=== PATIENT | male | born 1975 | race Caucasian/White ===

== ENCOUNTER 2017-02-28 13:20 | Emergency (ER) | payer OTHER ==
[2017-02-28] MEDS ORDERED: 0.9 % SODIUM CHLORIDE 1,000 ML IV ONE ×2 (13:26→13:33)
[2017-02-28 13:42] LABS: BASOPHILS % 0.2 (0.0-1.5); EOSINOPHILS % 1.5 % (0.0-6.8); MEAN CORPUSCULAR HEMOGLOBIN 31.5 pg (28.0-34.0); MEAN CORPUSCULAR VOLUME 92.3 fl (80.0-100.0); MONOCYTES % 4.6 % (0.0-11.0)
[2017-02-28] MEDS ORDERED: FLUMAZENIL 0.1 MG/ML 5ML VIAL IV ONE (13:43)
[2017-02-28] MEDS ORDERED: NALOXONE HCL 2 MG/2 ML IVP ONE (13:50)
[2017-02-28 13:56] LABS: eGFR (African) > 60; eGFR (Non-African) > 60
[2017-02-28 14:02] LABS: AMPHETAMINE NEGATIVE ng/mL (<1000); BARBITURATES NEGATIVE ng/mL (<300); CANNABINOIDS NEGATIVE ng/mL (<50); COCAINE NEGATIVE ng/mL (<150); METHAMPHETAMINE NEGATIVE ng/mL (<1000); METHYLENEDIOXYMETHAMPHETAMINE NEGATIVE ng/mL (<500)
[2017-02-28 14:29] LABS: APPEARANCE,URINE Slightly Cloudy (CLEAR); COLOR,URINE Yellow (YELLOW); OCCULT BLOOD,URINE Negative (NEGATIVE); PH URINE 7.5 (5.0 - 8.0); UROBILINOGEN URINE 0.2 Eu (0.2-1.0)
[2017-02-28] MEDS ORDERED: ATROPINE SULFATE 0.1 MG/ML DISP.SYRIN ONE (14:51)
[2017-02-28 14:52] LABS: AMORPHOUS SEDIMENT,UR FEW (NEGATIVE)
[2017-02-28] MEDS ORDERED: ATROPINE SULFATE 0.1 MG/ML DISP.SYRIN IVP ONE (14:54)
--- NOTE | 2017-02-28 16:53 | ED Physician Documentation ---
Headache - HISTORIAN Historian: patient - HPI Stated Complaint: Unresponsive Chief Complaint: Headache Additional Information: sever x 1 month, unrelenting, unresponsive to otc meds Onset: days ago (30) Timing: abrupt, still present, persistent New Gradual Onset: No Exposure To: none. denies: recent head injury Severity: moderate Quality: pain Associated Symptoms: nausea. 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 denies: confusion EYES/ENT: denies: sore throat, difficulty swallowing, sinus pain, drainage CVS/RESP: none GI/: denies: abdominal pain, diarrhea, problems urinating, incontinence MS/SKIN/LYMPH: denies: muscle aches, back pain, rash, skin lesions all systems neg except as marked: Yes - PAST HX Medical History: other (headache as above) Surgical History: no surgical history Immunizations: referred to PCP Allergies/Adverse Reactions: Allergies Allergy/AdvReac Type Severity Reaction Status Date / Time Sulfa (Sulfonamide Allergy Verified 02/28/17 13:40 Antibiotics) sulfamethoxazole Allergy Verified 02/28/17 13:40 [From Bactrim] trimethoprim [From Bactrim] Allergy Verified 02/28/17 13:40 Home Medications: Ambulatory Orders Medication Instructions Recorded Acetaminophen [Tylenol] 325 mg PO Q4 PRN 02/28/17 Ibuprofen [Advil] 200 mg PO 02/28/17 - SOCIAL HX Smoking History: cigarettes Alcohol Use: none Drug Use: none - Family HX Family History: other (dm) - VITAL SIGNS Vital Signs: Vital Signs Temp Pulse Resp BP Pulse Ox 98 F 63 16 121/60 98 02/28/17 13:20 02/28/17 16:30 02/28/17 13:20 02/28/17 13:20 02/28/17 16:30 - REVIEWED ASSESSMENTS Nursing Assessment Reviewed: No Vitals Reviewed: No Progress - Results/Orders Results/Orders: cbc, cmp, trop, ua, uds unremarkable - Progress Progress: Pt. given 1 liter NS, 1 mg atropine ivp. Low pulse 39, high 66. Critical Care Note - Critical Care Note Total Time (mins): 0 ED Results Lab/Radiology - Lab Results Lab Results: Lab Results 02/28/17 02/28/17 02/28/17 13:50 13:50 13:35 WBC RBC Hgb Hct MCV MCH MCHC RDW Plt Count Neut % (Auto) Lymph % (Auto) [place] % (Auto) Eos % (Auto) Baso % (Auto) Neut # Lymph # [place] # Eos # Baso # Reactive Lymphs % Reactive Lymphs # Sodium Potassium Chloride Carbon Dioxide BUN Creatinine Estimated Creat Clear Est GFR ( Amer) Est GFR (Non-Af Amer) Glucose Calcium Total Bilirubin AST ALT Alkaline Phosphatase Troponin I < 0.03 ng/mL L ng/mL (0.03-0.06) Total Protein Albumin Urine Color Yellow (YELLOW) Urine Appearance Slightly cloudy (CLEAR) Urine pH 7.5 (5.0 - 8.0) Ur Specific [place] 1.020 (1.010-1.030) Urine Protein 1+ mg/dL H mg/dL (NEGATIVE) Urine Ketones Trace mg/dL mg/dL (NEGATIVE) Urine Occult Blood Negative (NEGATIVE) Urine Nitrite Negative (NEGATIVE) Urine Bilirubin Negative (NEGATIVE) Urine Urobilinogen 0.2 Eu Eu (0.2-1.0) Ur Leukocyte Esterase Negative (NEGATIVE) Urine RBC 0-2 (0-2 HPF) Urine WBC 0-2 (0-5 HPF) Ur Squamous Epith Cells Few (NEG-FEW) Amorphous Sediment Few H (NEGATIVE) Urine Glucose Negative mg/dL mg/dL (NEGATIVE) Opiates Screen Negative (2000 ng/mL) Oxycodone Screen Negative ng/mL ng/mL (<100) Methadone Screen Negative ng/mL ng/mL (<300) POC Urine Barbiturates Negative ng/mL ng/mL (<300) Amphetamines Screen Negative ng/mL ng/mL (<1000) POC Ur Methamphetamine Negative ng/mL ng/mL (<1000) MDMA Negative ng/mL ng/mL (<500) Benzodiazepines Screen Negative ng/mL ng/mL (<300) Cocaine Screen Negative ng/mL ng/mL (<150) Marijuana (THC) Screen Negative ng/mL ng/mL (<50) Ethyl Alcohol 02/28/17 02/28/17 13:35 13:35 WBC 9.30 K/ul K/ul (4.00-12.00) RBC 4.73 M/ul M/ul (3.90-5.20) Hgb 14.9 g/dL g/dL (12.0-18.0) Hct 43.7 % % (37.0-53.0) MCV 92.3 fl fl (80.0-100.0) MCH 31.5 pg pg (28.0-34.0) MCHC 34.2 g/dL g/dL (30.0-36.0) RDW 13.2 % % (11.3-14.3) Plt Count 183 K/mm3 K/mm3 (130-400) Neut % (Auto) 75.5 % % (39.0-79.0) Lymph % (Auto) 16.7 % % (16.0-50.0) [place] % (Auto) 4.6 % % (0.0-11.0) Eos % (Auto) 1.5 % % (0.0-6.8) Baso % (Auto) 0.2 (0.0-1.5) Neut # 7.0 # k/uL # k/uL (1.4-7.7) Lymph # 1.6 # k/uL # k/uL (0.6-4.0) [place] # 0.4 # k/uL # k/uL (0.0-0.9) Eos # 0.1 # k/uL # k/uL (0.0-0.6) Baso # 0.0 # k/uL # k/uL (0.0-0.5) Reactive Lymphs % 1.4 % % (0.0-5.0) Reactive Lymphs # 0.1 # k/uL # k/uL (0.0-0.8) Sodium 142 mmol/L mmol/L (136-145) Potassium 3.7 mmol/L mmol/L (3.5-5.0) Chloride 104 mmol/L mmol/L (98-110) Carbon Dioxide 30 mmol/L mmol/L (20-32) BUN 16 mg/dL mg/dL (10-26) Creatinine 0.8 mg/dL mg/dL (0.4-1.5) Estimated Creat Clear 168 Est GFR ( Amer) > 60 (60 - ) Est GFR (Non-Af Amer) > 60 (60 - ) Glucose 107 mg/dL H mg/dL (70-99) Calcium 10.0 mg/dL mg/dL (8.5-10.5) Total Bilirubin 0.8 mg/dL mg/dL (0.2-1.2) AST 22 U/L U/L (0-41) ALT 20 U/L U/L (0-45) Alkaline Phosphatase 60 U/L U/L (46-116) Troponin I Total Protein 7.4 g/dL g/dL (6.0-8.5) Albumin 4.7 g/dL g/dL (3.0-5.5) Urine Color Urine Appearance Urine pH Ur Specific [place] Urine Protein Urine Ketones Urine Occult Blood Urine Nitrite Urine Bilirubin Urine Urobilinogen Ur Leukocyte Esterase Urine RBC Urine WBC Ur Squamous Epith Cells Amorphous Sediment Urine Glucose Opiates Screen Oxycodone Screen Methadone Screen POC Urine Barbiturates Amphetamines Screen POC Ur Methamphetamine MDMA Benzodiazepines Screen Cocaine Screen Marijuana (THC) Screen Ethyl Alcohol < 10.0 MG/DL MG/DL (<10.0) - Radiology Radiology Impressions: CT head shows 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 - Orders Orders: ED Orders Category Date Time Status Continuous EKG monitoring Q30M Care 02/28/17 13:33 Active Continuous Pulse Oximetry Q30M Care 02/28/17 13:[address] Saline Lock/IV Now Care 02/28/17 13:33 Completed CHEST 1 VIEW [RAD] Routine Exams 02/28/[address] ABD & PELVIS W/O CON Stat Exams 02/28/[address] BRAIN W/O CONTRAST Stat Exams 02/28/17 Ordered CBC/PLATELET/DIFF Routine Lab 02/28/17 13:35 Completed CMP Routine Lab 02/28/17 13:35 Completed DRUG SCREEN URINE MEDICAL ONLY Routine Lab 02/28/17 13:50 Completed ETHANOL MEDICAL USE ONLY Routine Lab 02/28/17 13:35 Completed TROPONIN I (cTnI) Routine Lab 02/28/17 13:35 Completed URINALYSIS Routine Lab 02/28/17 13:50 Completed 0.9 % Sodium Chloride [Normal Saline] 1,000 ml Med 02/28/17 13:26 Discontinued IV .STK-MED 0.9 % Sodium Chloride [Normal Saline] 1,000 ml Med 02/28/17 13:33 Discontinued IV Q1H Atropine Sulfate [Atropen] Med 02/28/17 14:51 Discontinued 1 mg .ROUTE .STK-MED ONE Atropine Sulfate [Atropen] Med 02/28/17 14:54 Discontinued 1 mg IVP NOW ONE Flumazenil [Romazicon] Med 02/28/17 13:43 Discontinued 1 mg IV NOW ONE Naloxone HCl [Narcan] Med 02/28/17 13:50 Discontinued 2 mg IVP NOW ONE Oxygen Daily Oxygen 02/28/17 13:45 Ordered EKG WITH COMPARISON Stat Ther 02/28/17 13:33 Ordered Headache Physical Exam - EXAM General Appearance: alert, moderate distress (secondary to headache) EENT: no facial swelling, eyes nml inspection, PERRL, nml ENT. No: pain over sinuses, photophobia, retinal hemorrhages Neck: normal inspection, thyroid normal, supple Respiratory: no resp distress, chest non-tender, breath sounds normal CVS: reg. rate & rhythm, heart sounds nml Abdomen: non-tender, no organomegaly, nml bowel sounds, no distention Skin: color nml, no rash Extremitites: non-tender, normal range of motion - NEURO/PSYCH Higher Functions: alert, nml speech, slow to respond Cranial: nml as tested, no evidence of acute CVA. denies: facial droop Cerebellar: nml as tested (able to stand without weaving) Sensorimotor: motor nml, sensation nml. denies: aphasia Discharge Clincal Impression: Obstructive hydrocephalus, Bradycardia Home Medications: Ambulatory Orders Acetaminophen [Tylenol] 325 mg PO Q4 PRN 02/28/17 Ibuprofen [Advil] 200 mg PO 02/28/17 Comments: Case discussed with Dr. Kimball of Neurology at [facility] secondary to correction contract but they do not have a Neurosurgeon. As such [facility] contacted and case discussed with Dr. Delgado of Neurology who accepts transfer. Pt. transferred via ground EMS to ER at [facility] for eval. by Neurology, Neurosurgery and Cardiology. Condition: Critical Disposition: 02 XFER SHT-TRM HOSP Decision to Admit: NO Decision Time: 16:40
[2017-02-28] MEDS ORDERED: ONDANSETRON HCL/PF 4 MG/ 2ML VIAL ONE (16:59)
[2017-02-28] MEDS ORDERED: ONDANSETRON HCL/PF 4 MG/ 2ML VIAL IVP ONE (17:04)
[2017-02-28 17:13] VITALS: BP 122/72
--- NOTE | 2017-02-28 20:14 | Diagnostic Imaging Report ---
ECTOR WARE [facility] [address] [facility].[address] [address] Report Submission Date: Feb 28, 2017 3:41:50 PM CDT Patient Study Name: NAIN ALICIA Date: Feb 28, 2017 2:16:17 PM CDT Modality Type: CT\SR Gender: M Description: CT BRAIN W/O CONTRAST : 71 Institution: [facility] Physician: ECTOR WARE Computed tomography of the head without contrast History: Headaches and decrease consciousness Findings: Transverse brain sections are obtained without contrast revealing moderate bilateral lateral ventriculomegaly and a hyperdense lesion in the roof of the 3rd ventricle measuring 8 x 9 mm. Diffuse cerebral sulcal effacement is present without intracranial hemorrhage. The 3rd and 4th ventricles are normal in size. 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 Electronically signed on Feb 28, 2017 3:41:50 PM CDT by: Maximiliano LERNER
--- NOTE | 2017-02-28 20:14 | Diagnostic Imaging Report ---
ECTOR WARE [facility] [address] [facility] [address] [place], [place]. [address] Report Submission Date: Feb 28, 2017 3:45:26 PM CDT Patient Study Name: NAIN ALICIA Date: Feb 28, 2017 2:19:46 PM CDT Modality Type: CT\SR Gender: M Description: CT ABD & PELVIS W/O CO : 71 Institution: [facility] Physician: ECTOR WARE Computed tomography of the abdomen and pelvis without contrast History: Abdominal pain Findings: Transverse abdomen and pelvis sections are obtained without contrast revealing minimal left basilar atelectasis probably multiple small hepatic cysts , normal caliber gallbladder, and normal appendix. Bowel loops exhibit normal caliber and wall thickness. The pancreas, spleen, adrenals, kidneys, great vessels, and mesenteric structures are unremarkable. Motion artifact distorts some images. Pelvic sections reveal moderate rectosigmoid stool. Urinary bladder, prostate, and seminal vesicles are unremarkable. Mild L5/S1 spondylosis is present. No acute inflammatory or obstructive process is observed in the abdomen or pelvis. Impression: 1. No acute inflammatory or obstructive process. 2. Minimal left base atelectasis, probably small hepatic cysts, and mild constipation. Electronically signed on Feb 28, 2017 3:45:26 PM CDT by: Maximiliano LERNER
--- NOTE | 2017-02-28 20:15 | Diagnostic Imaging Report ---
ECTOR WARE [facility] [address] [facility] [address] [address] Report Submission Date: Feb 28, 2017 3:54:44 PM CDT Patient Study Name: NAIN ALICIA Date: Feb 28, 2017 2:29:01 PM CDT Modality Type: CR Gender: M Description: CHEST : 71 Institution: [facility] Physician: ECTOR WARE Portable chest History: Decreased level of consciousness Findings: Thoracic kyphosis and low lung volumes are observed without infiltrate or pleural effusion. Heart size and pulmonary vascularity are normal. Impression: Low lung volumes. Electronically signed on Feb 28, 2017 3:54:44 PM CDT by: Maximiliano LERNER
== END 2017-02-28 17:05 | disposition short-term general hospital (02) ==
LOC: ED 13:20
DX: G91.1 Obstructive hydrocephalus (principal); R00.1 Bradycardia, unspecified
CPT/HCPCS: 70450; 71010; 74176; 80053; 80320; 80377; 81002; 84484; 85025; 93005; 96361; 96374; 96375; 99283; 99284; J0461; J2310; J2405; J3490; J7030; G0480; G0481; S1016

== ENCOUNTER 2017-04-24 11:32 | Outpatient (CLI) | payer OTHER ==
[2017-04-24 11:51] LABS: BASOPHILS % 0.3 (0.0-1.5); EOSINOPHILS % 3.4 % (0.0-6.8); MEAN CORPUSCULAR HEMOGLOBIN 31.1 pg (28.0-34.0); MEAN CORPUSCULAR VOLUME 93.7 fl (80.0-100.0); MONOCYTES % 4.9 % (0.0-11.0)
[2017-04-24 12:06] LABS: eGFR (African) > 60; eGFR (Non-African) > 60
== END 2017-04-24 11:33 ==
LOC: LAB 11:32
PROVIDERS: ATTEND General Practice
DX: G96.9 Disorder of central nervous system, unspecified (principal)
CPT/HCPCS: 80053; 85025